=== PATIENT | female | born 1995 | race Two or more races ===

== ENCOUNTER 2020-08-21 20:52 | Emergency (ER) | payer MEDICAID ==
[~2020-08-21] VITALS: Ht 157.5 cm; Wt 90.0 kg
[2020-08-21 22:45] LABS: CLARITY URINE CLOUDY (CLEAR); COLOR URINE DARK YELLOW (YELLOW); KETONES URINE 4+ (NEGATIVE); LEUKOCYTE ESTERASE URINE 1+ (NEGATIVE); NITRITE URINE NEGATIVE (NEGATIVE); OCCULT BLOOD URINE 1+ (NEGATIVE); PH URINE 6.5 (4.5-8.0); PROTEIN URINE 1+ (NEGATIVE); SPECIFIC GRAVITY URINE 1.035 (1.005-1.030)
[2020-08-21 22:53] LABS: *AMPHETAMINES SCREEN URINE NEGATIVE (NEGATIVE); *BARBITURATES SCREEN URINE NEGATIVE (NEGATIVE); *BENZODIAZEPINES SCREEN URINE NEGATIVE (NEGATIVE)
[2020-08-21 22:54] LABS: *COCAINE SCREEN URINE NEGATIVE (NEGATIVE); CANNABINOID URINE SCREEN NEGATIVE (NEGATIVE); METHADONE URINE SCREEN NEGATIVE (NEGATIVE); OPIATES URINE SCREEN NEGATIVE (NEGATIVE); PHENCYCLIDINE URINE SCREEN NEGATIVE (NEGATIVE)
[2020-08-21 22:56] LABS: BASOPHILS % 0.5 % (0.0-2.0); EOSINOPHILS % 0.1 % (0.0-5.0); HEMATOCRIT. 39.6 % (36.0-48.0); HEMOGLOBIN. 13.5 g/dL (12.0-16.0); LYMPHOCYTES % 46.7 % (20.0-50.0); MEAN CORPUSCULAR VOLUME 84.6 fL (81.0-99.0); MEAN PLATELET VOLUME 7.9 fl (7.4-10.4); MONOCYTES % 9.7 % (2.0-8.0); PLATELET 201 x1000/uL (130-400); RED BLOOD CELL COUNT 4.68 mill/uL (4.2-5.4); RED CELL DISTRIBUTION WIDTH 12.5 % (11.6-14.6)
[2020-08-21] MEDS ORDERED: SODIUM CHLORIDE 0.9% 1,000 ML IV ONE (23:00)
[2020-08-21 23:03] LABS: CHLORIDE 101 mEq/L (98-107)
[2020-08-21 23:08] LABS: ETHANOL BLOOD < 10 mg/dL
[2020-08-22] MEDS ORDERED: IBUP-2028 MT (00:55)
[2020-08-22] MEDS ORDERED: CEPH500T MT (00:55)
[2020-08-22] MEDS ORDERED: CEFTRIAXONE 1 G PREMIX 50 ML IV ONE (01:00)
[2020-08-22 01:34] VITALS: BP 123/81
== END 2020-08-22 01:42 | disposition home or self-care (01) ==
LOC: ER 20:52
DX: N39.0 Urinary tract infection, site not specified (principal); M79.18 Myalgia, other site; R51.9 Headache, unspecified
CPT/HCPCS: 36415; 70450; 80053; 80305; 80320; 81003; 81025; 85025; 96361; 96365; 99284; J0696; J7030; G0480

== ENCOUNTER 2020-12-22 09:19 | Emergency (ER) | payer MEDICAID, OTHER ==
[~2020-12-22] VITALS: Ht 154.9 cm; Wt 92.0 kg
[~2020-12-22 09:19] MED LIST: CEPH500T MT; IBUP-2028 MT
[2020-12-22 09:24] VITALS: BP 166/65
[2020-12-22] MEDS ORDERED: KETOROLAC 60MG/2ML VIAL IM ONE (09:45)
[2020-12-22] MEDS ORDERED: ACETAMINOPHEN 325MG TABLET PO ONE (10:00)
[2020-12-22 10:45] LABS: CLARITY URINE CLEAR (CLEAR); COLOR URINE YELLOW (YELLOW); KETONES URINE TRACE (NEGATIVE); LEUKOCYTE ESTERASE URINE 1+ (NEGATIVE); NITRITE URINE NEGATIVE (NEGATIVE); OCCULT BLOOD URINE 1+ (NEGATIVE); PROTEIN URINE NEGATIVE (NEGATIVE); SPECIFIC GRAVITY URINE 1.027 (1.005-1.030); UROBILINOGEN URINE 0.2 E.U./dL (0.2-1.0)
[2020-12-22] MEDS ORDERED: PREN-52 MT (11:05)
[2020-12-22] MEDS ORDERED: NITR-87 MT (11:05)
== END 2020-12-22 11:58 | disposition home or self-care (01) ==
LOC: ER 09:19
DX: N39.0 Urinary tract infection, site not specified (principal)
CPT/HCPCS: 76830; 76856; 81003; 81025; 99285